=== PATIENT | male | born 1930 | race Caucasian/White ===

== ENCOUNTER 2018-11-18 16:06 | Emergency (ER) | payer MEDICARE, BC ==
[2018-11-18] MEDS: Sodium Chloride 0.9% 10 ML Syringe FLUSH PRN ×4 (16:20→18:31)
[2018-11-18] MEDS ORDERED: Diltiazem 25 MG/5 ML SDV IVPUSH ONE ×2 (16:48→20:32)
[2018-11-18] MEDS ORDERED: Metoprolol Tartrate 5 MG/5 ML SDV IVPUSH ONE ×3 (16:50→18:27)
[2018-11-18] MEDS ORDERED: Sodium Chloride 0.9% 500 ML IV ONE (18:51)
[2018-11-18] MEDS ORDERED: Magnesium Sulfate/Water 2 GM in Premix Bag 1 BAG IV ONE (19:11)
[2018-11-18] MEDS ORDERED: Magnesium Sulfate/Water 50 ML ONE (19:14)
--- NOTE | 2018-11-18 20:25 | EDM.PDOC ---
ED HPI GENERAL MEDICAL PROBLEM - General Chief Complaint: Cardiovascular Problem Stated Complaint: MELISA cabrera Time Seen by Provider: 11/18/18 16:30 Source of Information: Reports: Patient, Provider History Limitations: Reports: No Limitations - History of Present Illness INITIAL COMMENTS - FREE TEXT/NARRATIVE: sent over from clinic due to aflutter with RVR. Patient reports he has intermittently been short of breath on exertion the past 3-6 weeks. Occasional chest pain, not daily, one episode yesterday. Seems mostly to coincide with activity. Has gotten more frequent in the past week, almost daily. has been on a trip to [place] with his for past 2.5 weeks, drove. No leg swelling. No pleuritic chest pain, cough, or pain radiating to his arm or neck. No sweating or fevers. No history of cardiac issues, blood clots, or pulmonary disease. No diabetes. +history HTN, HLD, hypothyroid no known family history of cardiac problems - Related Data Allergies Allergy/AdvReac Type Severity Reaction Status Date / Time No Known Allergies Allergy Verified 11/18/18 16:29 Home Meds: Home Meds Aspirin [Halfprin] 81 mg PO DAILY 11/18/18 [History] Calcium Carbonate [Calcium] 500 mg PO DAILY 11/18/18 [History] Cyanocobalamin (Vitamin B12) [Vitamin B12] 1,000 mcg PO DAILY 11/18/18 [History] Levothyroxine [Synthroid] 100 mcg PO ACBREAKFAST 11/18/18 [History] Losartan/Hydrochlorothiazide [Losartan-HCTZ 100-25 MG] 1 each PO DAILY 11/18/18 [History] Niacin 500 mg PO DAILY 11/18/18 [History] Sennosides/Docusate Sodium [Senna-S] 1 each PO DAILY 11/18/18 [History] Past Medical History HEENT History: Reports: Cataract Cardiovascular History: Reports: Hypertension Respiratory History: Reports: None Gastrointestinal History: Reports: GERD Endocrine/Metabolic History: Reports: Hypothyroidism Hematologic History: Reports: B12 Deficiency - Past Surgical History HEENT Surgical History: Reports: Cataract Surgery, Tonsillectomy, Other (See Below) Other HEENT Surgeries/Procedures: Shunt placed in 1988 GI Surgical History: Reports: Colonoscopy, Polypectomy Social & Family History - Family History Family Medical History: Noncontributory - Tobacco Use Smoking Status *Q: Never Smoker Second Hand Smoke Exposure: No - Caffeine Use Caffeine Use: Reports: Coffee, Tea - Alcohol Use Alcohol Use History: No - Recreational Drug Use Recreational Drug Use: No - Living Situation & Occupation Social History Comment: recent car trip to [place] for 2 week, drove out ED ROS GENERAL - Review of Systems Review Of Systems: ROS reveals no pertinent complaints other than HPI. ED EXAM, GENERAL - Physical Exam Exam: See Below Free Text/Narrative:: General: alert, pleasant no acute distress Head atramatic, neck supple, pupils reactive, facial muscles symmetric throat without erythema, mucus membranes moist heart tachycardic lungs - dimished in bases, otherwise clear Peripheral pulses - +2, equal, no lower extremity edema abdomen soft, nontender, no rebound or guarding gait normal, strength equal bilaterally Skin - no obvious lesions or rashes EKG INTERPRETATION Rhythm: A-Flutter EKG Interpretation Comments: possible ischemic changes in lateral leads - difficult to tell with elevated rate Course - Vital Signs Text/Narrative:: sent over from clinic, mildly elevated troponin there, EKG shows aflutter. BP ok, patient is basically asymptomatic, rate anywhere from 100-130s appears euvolemic, no history suggesting dehydration labs, cxr ordered. IV Lopressor X3 ordered differential - unlikely PE, no obvious ischemia symptoms, suspect CHF, some renal involvement. No obvious signs infection. Hemodynamically tolerating well. Last Recorded V/S: Last Vital Signs Temp 36.6 C 11/18/18 16:06 Pulse 117 H 11/18/18 18:30 Resp 19 11/18/18 16:06 BP 118/92 H 11/18/18 18:30 Pulse Ox 97 11/18/18 16:35 - Orders/Labs/Meds Orders: Active Orders 24 hr Category Date Time Status EKG Documentation Completion [RC] ASDIRECTED Care 11/18/18 17:08 Active CXR [Chest 2V] [CR] Stat Exams 11/18/18 17:07 Taken Diltiazem 125 mg Med 11/18/18 21:30 Active Sodium Chloride 0.9% [Normal Saline] 100 ml IV TITRATE Sodium Chloride 0.9% [Saline Flush] Med 11/18/18 16:23 Active 10 ml FLUSH ASDIRECTED PRN EKG 12 Lead [EK] Routine Ther 11/18/18 17:08 Ordered Medication Orders Diltiazem HCl 125 mg/ Sodium (Chloride) 125 mls @ 5 mls/hr IV TITRATE DEBBY; Protocol Last Titration: 11/18/18 22:08 Dose: 10 mg/hr, 10 mls/hr Admin: 11/18/18 21:39 Dose: 5 mg/hr, 5 mls/hr Sodium Chloride (Saline Flush) 10 ml FLUSH ASDIRECTED PRN PRN Reason: IV Use Last Admin: 11/18/18 18:31 Dose: 10 ml Admin: 11/18/18 17:34 Dose: 10 ml Admin: 11/18/18 16:56 Dose: 10 ml Admin: 11/18/18 16:20 Dose: 10 ml Labs: Laboratory Tests 11/18/18 11/18/18 11/18/18 Range/Units 16:30 16:30 16:30 WBC 16.1 H (4.5-12.0) X10-3/uL RBC 3.71 L (4.30-5.75) x10(6)uL Hgb 12.1 L (13.5-17.8) g/dL Hct 35.4 (30.0-51.3) % MCV 95.5 (80-96) fL MCH 32.7 (27.7-33.6) pg MCHC 34.2 (32.2-35.4) g/dL RDW 12.9 (11.5-15.5) % Plt Count 347 (125-369) X10(3)uL MPV 9.8 (7.4-10.4) fL Add Manual Diff Yes Neutrophils % (Manual) 84 H (46-82) % Band Neutrophils % 2 (0-6) % Lymphocytes % (Manual) 6 L (13-37) % Monocytes % (Manual) 8 (4-12) % Sodium 135 (135-145) mmol/L Potassium 4.1 (3.5-5.3) mmol/L Chloride 101 (100-110) mmol/L Carbon Dioxide 21 (21-32) mmol/L BUN 21 H (7-18) mg/dL Creatinine 1.4 H (0.70-1.30) mg/dL Est Cr Clr Drug Dosing 37.66 mL/min Estimated GFR (MDRD) 48 L (>60) BUN/Creatinine Ratio 15.0 (9-20) Glucose 122 H (80-116) mg/dL Calcium 8.7 (8.6-10.2) mg/dL Magnesium 1.5 L (1.8-2.5) mg/dL Total Bilirubin 0.6 (0.1-1.3) mg/dL AST 18 (5-25) IU/L ALT 34 (12-36) U/L Alkaline Phosphatase 88 (56-112) IU/L Troponin I (<0.017-0.056) ng/mL Total Protein 7.3 (6.0-8.0) g/dL Albumin 2.9 L (3.2-4.6) g/dL Globulin 4.4 g/dL Albumin/Globulin Ratio 0.7 11/18/18 11/18/18 Range/Units 16:30 20:25 WBC (4.5-12.0) X10-3/uL RBC (4.30-5.75) x10(6)uL Hgb (13.5-17.8) g/dL Hct (30.0-51.3) % MCV (80-96) fL MCH (27.7-33.6) pg MCHC (32.2-35.4) g/dL RDW (11.5-15.5) % Plt Count (125-369) X10(3)uL MPV (7.4-10.4) fL Add Manual Diff Neutrophils % (Manual) (46-82) % Band Neutrophils % (0-6) % Lymphocytes % (Manual) (13-37) % Monocytes % (Manual) (4-12) % Sodium (135-145) mmol/L Potassium (3.5-5.3) mmol/L Chloride (100-110) mmol/L Carbon Dioxide (21-32) mmol/L BUN (7-18) mg/dL Creatinine (0.70-1.30) mg/dL Est Cr Clr Drug Dosing mL/min Estimated GFR (MDRD) (>60) BUN/Creatinine Ratio (9-20) Glucose (80-116) mg/dL Calcium (8.6-10.2) mg/dL Magnesium (1.8-2.5) mg/dL Total Bilirubin (0.1-1.3) mg/dL AST (5-25) IU/L ALT (12-36) U/L Alkaline Phosphatase (56-112) IU/L Troponin I 0.585 H* 0.744 H* (<0.017-0.056) ng/mL Total Protein (6.0-8.0) g/dL Albumin (3.2-4.6) g/dL Globulin g/dL Albumin/Globulin Ratio Meds: Medications Generic Name Dose Route Start Last Admin Trade Name Freq PRN Reason Stop Dose Admin Diltiazem HCl 125 mg/ Sodium 125 mls @ 5 mls/hr 11/18/18 21:30 11/18/18 22:08 Chloride IV 10 mg/hr TITRATE DEBBY 10 mls/hr Titration Protocol 5 MG/HR Sodium Chloride 10 ml 11/18/18 16:23 11/18/18 18:31 Saline Flush FLUSH 10 ml ASDIRECTED PRN Administration IV Use Discontinued Medications Generic Name Dose Route Start Last Admin Trade Name Freq PRN Reason Stop Dose Admin Diltiazem HCl 5 mg 11/18/18 20:32 11/18/18 20:53 Diltiazem IVPUSH 11/18/18 20:33 5 mg ONETIME ONE Administration Furosemide 20 mg 11/18/18 20:32 11/18/18 20:54 Lasix IVPUSH 11/18/18 20:33 20 mg NOW ONE Administration Sodium Chloride 500 mls @ 999 mls/hr 11/18/18 18:51 11/18/18 18:53 Normal Saline IV 11/18/18 19:21 999 mls/hr .BOLUS ONE Administration Magnesium Sulfate 2 gm/ Premix 50 mls @ 150 mls/hr 11/18/18 19:11 11/18/18 19 :19 IV 11/18/18 19:30 150 mls/hr ONETIME ONE Administration Magnesium Sulfate Confirm 11/18/18 19:14 11/18/18 20:43 Magnesium Sulfate In Water Premix Administered 11/18/18 19:15 Not Given Dose 50 mls @ as directed .ROUTE .STK-MED ONE Metoprolol Tartrate 5 mg 11/18/18 16:50 11/18/18 16:54 Lopressor IVPUSH 11/18/18 16:51 5 mg ONETIME ONE Administration Metoprolol Tartrate 5 mg 11/18/18 17:06 11/18/18 17:34 Lopressor IVPUSH 11/18/18 17:07 5 mg ONETIME ONE Administration Metoprolol Tartrate 5 mg 11/18/18 18:27 11/18/18 18:30 Lopressor IVPUSH 11/18/18 18:28 5 mg ONETIME ONE Administration - Re-Assessments/Exams Free Text/Narrative Re-Assessment/Exam: 11/18/18 CXR - slight left-sided pleural effusion Labs - troponin slightly elevated, similar to clinic, suspect demand ischemia. Mild anemia, WBCs elevated to 16.1, creatinine 1.4. K ok, will add magnesium HR came down with lopressor after 2nd dose, will give 3rd. Rate now 110's, BP still ok will try small fluid bolus see if helps-- 500cc Free Text/Narrative Re-Assessment/Exam: 11/18/18 discussed lab results with patient and family, recommended transfer to [facility] for further workup, they are in agreement HR has increased again - 2 hours since last lopressor dose no obvious change after fluid bolus patient remains asymptomatic Discussed with [facility], who accepts for transfer. Recommended starting diltiazem prior to transfer, if tolerates 5mg bolus test dose, will start drip, and trying 20mg lasix for possible volume overload, orders placed. Free Text/Narrative Re-Assessment/Exam: 11/18/18 22:41 tolerated diltiazem 5mg bolus, drip started, titrated up to 15mcg/min prior to transfer lasix given patient remains stable and symptomatic throughout Departure - Departure Time of Disposition: 22:42 Disposition: DC/Tfer to Acute Hospital 02 Reason for Transfer *Q: Other Condition: Fair Clinical Impression: Atrial flutter with rapid ventricular response, Acute kidney injury, Leukocytosis, Elevated troponin level Referrals: Ki Lawson PA [Primary Care Provider] - Forms: ED Department Discharge Additional Instructions: Transfer to [facility] Dr. Gonzales accepting - My Orders Last 24 Hours: My Active Orders 11/18/18 16:23 Sodium Chloride 0.9% [Saline Flush] 10 ml FLUSH ASDIRECTED PRN 11/18/18 17:07 CXR [Chest 2V] [CR] Stat 11/18/18 17:08 EKG Documentation Completion [RC] ASDIRECTED EKG 12 Lead [EK] Routine 11/18/18 21:30 Diltiazem 125 mg Sodium Chloride 0.9% [Normal Saline] 100 ml IV TITRATE - Assessment/Plan Last 24 Hours: My Active Orders 11/18/18 16:23 Sodium Chloride 0.9% [Saline Flush] 10 ml FLUSH ASDIRECTED PRN 11/18/18 17:07 CXR [Chest 2V] [CR] Stat 11/18/18 17:08 EKG Documentation Completion [RC] ASDIRECTED EKG 12 Lead [EK] Routine 11/18/18 21:30 Diltiazem 125 mg Sodium Chloride 0.9% [Normal Saline] 100 ml IV TITRATE
[2018-11-18] MEDS ORDERED: Furosemide 40 MG/4 ML VIAL IVPUSH ONE (20:32)
[2018-11-18] MEDS ORDERED: Diltiazem 125 MG in Sodium Chloride 0.9% 100 ML IV SCH (21:30)
--- NOTE | 2018-11-19 11:25 | CR ---
INDICATION: Dyspnea on exertion. CHEST: PA and lateral views of the chest were obtained 11/18/18 - no comparisons. The heart is enlarged in appearance with no specific chamber enlargement. The aorta is slightly tortuous with calcification in the arch. Flattened diaphragm leaves, prominent AP diameter, and hyperaeration all suggest COPD. Bibasilar pleural parenchymal changes are noted, left greater than right, compatible with pneumonia and pleuritis additionally. Overlying EKG leads are noted. Accentuated dorsal kyphosis is noted. Minimal degenerative changes are noted in the thoracic spine. IMPRESSION: 1. ASHD with cardiomegaly - no definite CHF. 2. Bibasilar pleural parenchymal changes, left greater than right, compatible with pneumonia and pleuritis. 3. COPD. MTDD
== END 2018-11-18 22:36 ==
LOC: FB.ED 16:06
DX: I48.92 Unspecified atrial flutter (principal); N17.9 Acute kidney failure, unspecified; D72.829 Elevated white blood cell count, unspecified; R79.89 Other specified abnormal findings of blood chemistry; E03.9 Hypothyroidism, unspecified; I10 Essential (primary) hypertension; Z79.82 Long term (current) use of aspirin; Z79.899 Other long term (current) drug therapy
CPT/HCPCS: 36415; 71046; 80053; 83735; 84484; 85025; 93005; 96365; 96367; 96375; 96376; 99285; J1940; J3475; J3490; J7030; J7040; 93010